=== PATIENT | male | born 1985 | race Caucasian/White ===

== ENCOUNTER 2020-10-10 08:34 | Outpatient (CLI) | payer BC | END 2020-10-10 17:08 | disposition home or self-care (01) | LOC: LAB 08:34 → EDBD 08:34 → LAB 17:08 | PROVIDERS: ATTEND Pediatrics Neonatal-Perinatal Medicine | DX: R05 Cough (principal); Z03.818 Encounter for observation for suspected exposure to other biological agents ruled out ==

== ENCOUNTER 2020-10-14 12:18 | Outpatient (CLI) | payer BC | END 2020-10-14 12:22 | disposition home or self-care (01) | LOC: LAB 12:18 | PROVIDERS: ATTEND Pediatrics Neonatal-Perinatal Medicine | DX: Z03.818 Encounter for observation for suspected exposure to other biological agents ruled out (principal) ==